=== PATIENT | male | born 1970 | race African-American/Black ===

== ENCOUNTER 2019-03-23 17:42 | Emergency (ER) | payer SELFPAY ==
[2019-03-23] MEDS ORDERED: Albuterol Sulfate 2.5 mg/3 ml Neb ONE (18:22)
[2019-03-23] MEDS ORDERED: predniSONE 20 MG TAB ONE (18:31)
== END 2019-03-23 19:38 | disposition home or self-care (01) ==
LOC: ERS 17:42
DX: J45.901 Unspecified asthma with (acute) exacerbation (principal); I10 Essential (primary) hypertension; F17.210 Nicotine dependence, cigarettes, uncomplicated; Z79.51 Long term (current) use of inhaled steroids; Z79.899 Other long term (current) drug therapy
CPT/HCPCS: 94640; J7512; J7611; J7620